=== PATIENT | female | born 1970 | race Caucasian/White ===

== ENCOUNTER 2017-11-24 12:18 | Emergency (ER) | payer SELFPAY ==
[~2017-11-24] VITALS: Ht 165.1 cm; Wt 104.3 kg
[2017-11-24 12:19] VITALS: Ht 165.1 cm; Wt 104.3 kg
[2017-11-24 12:52] LABS: BASOPHIL % 0.7 % (0-2); CALCIUM 8.6 mg/dL (8.5-10.1); CARBON DIOXIDE 24.7 mmol/L (21-32); CHLORIDE SERUM 100 mmol/L (98-107); CREATININE SERUM 0.8 mg/dL (0.6-1.0); GFR1 > 60 mL/min; GLUCOSE SERUM 121 mg/dL (74-106); POTASSIUM SERUM 3.3 mmol/L (3.5-5.1); RED CELL DISTRIBUTION WIDTH 13.3 % (11.5-14.5); SODIUM SERUM 136 mmol/L (136-145)
[2017-11-24 12:55] LABS: PLATELET COUNT 431 x10^3mcL (130-400)
[2017-11-24 12:57] LABS: ALBUMIN 3.5 g/dL (3.4-5.0); ALKALINE PHOSPHATASE 76 U/L (46-116); ALT/SGPT 36 U/L (14-59); AST/SGOT 22 U/L (15-37); BILIRUBIN TOTAL 0.2 mg/dL (0.20-1.00); TOTAL PROTEIN, SERUM 8.2 g/dL (6.4-8.2)
[2017-11-24 14:54] VITALS: BP 123/90
== END 2017-11-24 14:54 | disposition home or self-care (01) ==
LOC: ED 12:18
PROVIDERS: Emergency Medicine
DX: I47.1 Supraventricular tachycardia (principal)
CPT/HCPCS: J0153; Q0092